=== PATIENT | female | born 1985 | race Caucasian/White ===

== ENCOUNTER 2016-07-03 13:18 | Inpatient (IN) | payer OTHER ==
[~2016-07-03] VITALS: Ht 170.2 cm; Wt 120.2 kg
[~2016-07-03 13:18] MED LIST: AUGMENTIN 875-1 EACH PO
--- NOTE | 2016-07-03 15:14 | History & Physical ---
General Information and HPI MD Statement: I have seen and personally examined JEANNE PEREZ and documented this H&P. 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 Allergies/Medications Allergies: Coded Allergies: No Known Allergies (12/10/15) Home Med list Amoxicillin/Potassium Clav (Augmentin 875-125 Tablet) 1 EACH TABLET 1 TAB PO BID DOG BITE Compliance With Home Meds: GOOD 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 History : 1 Para: 0 Last Menstrual Period: 10/07/2015 Estimated Delivery Date: 07/13/2016 Past engine 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 History: none Medical History Blood Transfusion Hx: No Neurological: NONE EENT: NONE Cardiovascular: NONE Respiratory: NONE Gastrointestinal: NONE Hepatic: NONE Renal: NONE Musculoskeletal: NONE Psychiatric: NONE Endocrine: obesity Blood Disorders: NONE Cancer(s): NONE 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 Home Who Do You Live With? spouse, self Primary Language: Syriac Smoking Status: Never Smoked ETOH Use: denies use Illicit Drug Use: denies illicit drug use Review of Systems Review of Systems: NEG FOR CARDIAC PULMONARY GI COMPLAINTS Exam & Diagnostic Data Last 24 Hrs of Vital Signs/I&O T 98.7 P 88 R 16 BP 118/74 PO2 99% RA Obstetric Exam Wgt Gained During : 48 Pelvimetry: SHOULD BE ADEQ FOR AVGE BABY Dilation (cm): 2 Effacement (%): 60 Station: -1 Membranes: SROM Fluid: clear Fundal Height (cm): 38 Multiple Gestation? No Contractions: IREG #1 - FHR Baseline: 134 Category: 1 Estimated Weight: 7# 4oz Presentation: VTX Patient for Induction? No Barker Score Barker Score Response Value Cervix Position: posterior 0 Cervix Consistency: medium 1 Cervix Effacement: 60-70% 2 Cervix Dilation: 1-2 cm 1 Cervix Station: -1 2 Total 6 Labs Blood Type & Rh: O+ Antibody Screen: N Hct/Hgb & Platelets #1: 13.4/40.6 PLTS 294,000 Hct/Hgb & Platelets #2: 11.7/35.7 PLTS 245,000 Rubella: I VDRL #1: N VDRL #2: N HbsAg: N HIV #1: N HIV #2 N 1 Hr P 3 Hr PG: N/A Group B Strep: N Initial Ultrasound: 12/09/2015 S=D=U/S ZOE 07/13/2016 Anatomy Ultrasound: 03/05/2016 @ 21 3/7 S=D=U/S MALE NL ANATOMY NEG ANNEUPLOIDY Ultrasound for EFW: 06/30/2016 AGA 71% 7#4oz NEG SHOULDER SCREEN Genetic Testing: NEG MAT SCREEN CF/ FRAG X/ SMA NEG 1ST TRIM SCREEN MAT T21 WNL - XY PARVO IMM Last 24 Hrs of Labs/Dyllan: Laboratory Tests 07/03/16 1330: Urine Color Pending, Urine Clarity Pending, Urine pH Pending, Ur Specific [place] Pending, Urine Protein Pending, Urine Ketones Pending, Urine Nitrite Pending, Urine Bilirubin Pending, Urine Urobilinogen Pending, Ur Leukocyte Esterase Pending, Ur Microscopic Pending, Urine Hemoglobin Pending, Urine Glucose Pending Assessment/Plan Assessment/Plan: @ 38 4/7 W/ SROM CLEAR FLUID. MAT BMI 42 NEG GR B STR/ NEG SHOULDER SCREEN ANTICIPATE ONSET OF LABOR - AUGMENT LABOR NEEDED LIMIT # OF VAG EXAMS As Ranked By This Provider Problem List: 1. 2. SROM (spontaneous rupture of membranes) 3. BMI 40.0-44.9, adult Core Measures/Miscellaneous Venous Thromboembolism VTE Risk Factors: Obesity, / VTE Contraindications: Active Bleeding VTE Prophylaxis Ordered Inpt: Early Ambulation (LOVENOX PP DUE TO BMI 42) VTE Diagnosis: No Beta Margarita Is Beta Margarita a Home Med? No If No, Why Not? N/A Antibiotics Is Patient on Antibiotics? No Attending MD Review Statement Attending Statement Attending MD Statement: examined this patient, discussed with family, discussed w/nursing Attending Assessment/Plan: Sukhjinder GUERIN MD
[2016-07-03 15:25] LABS: ABSOLUTE BASOPHIL COUNT 0 /CUMM (0.0-0.2); ABSOLUTE EOSINOPHIL COUNT 0.1 /CUMM (0.0-0.7); ABSOLUTE GRANULOCYTE CT 10.7 /CUMM (1.4-6.5); ABSOLUTE MONOCYTE COUNT 0.8 /CUMM (0.10-0.60); BASOPHIL % 0.2 % (0.0-2.0); EOSINOPHIL % 1.1 % (0-5); GRANULOCYTE % 78.7 % (42.2-75.2); HEMATOCRIT 35.1 % (37-47); MEAN CORPUSCULAR HGB 31.7 PG (27.0-31.0); MEAN CORPUSCULAR HGB CONC 34.2 G/DL (33.0-37.0); MEAN CORPUSCULAR VOLUME 92.6 FL (81.0-99.0); MEAN PLATELET VOLUME 8.6 FL (7.4-10.4); PLATELET COUNT 217 /CUMM (130-400); RBC DISTRIBUTION WIDTH 13.5 % (11.5-14.5); RED BLOOD CELL CT 3.79 /CUMM (4.20-5.40); WHITE BLOOD CELL COUNT 13.5 /CUMM (4.8-10.8)
--- NOTE | 2016-07-04 09:59 | PN- Obstetrical ---
Subjective Subjective: Slept off/ on over night, occas contractions, some leakage, no vag bleeding no fever/ chills Review of Systems: Neg for Cardiac Pulmonary GI complaints Objective Last 24 Hrs of Vital Signs/I&O Tmax 98,2 P 80's. R 16 BP 118/74 PO2 99 % RA Physical Exam General Appearance Alert, Oriented X3, Cooperative, No Acute Distress Skin No Significant Lesion Cardiovascular Regular Rate Lungs Normal Air Movement Abdomen Normal Bowel Sounds, Soft, No Tenderness, No Hepatospenomegaly, Uterus nontender mild contractions FHR 140's Neurological Normal Gait, Normal Speech Extremities No Tenderness/Swelling Reproductive (FEMALE) Normal female genitalia Obstetric Exam Dilation (cm): 3 Effacement (%): 80 Station: 0 Membranes: SROM Fluid: clear Multiple Gestation? No Contractions: irreg Infant #1 - FHR Baseline: 144 Category: 1 Estimated Weight: 7# 4oz Presentation: VTX Current Medications: Current Medications Sig/Abhishek Start time Last Medication Dose Route Stop Time Status Admin Hydroxyzine HCl 100 MG AT BEDTIME NEED.. 07/04 0000 AC 07/04 PO 0018 Hydroxyzine HCl 100 MG .STK-MED ONE 07/03 2253 DC PO 07/03 2254 Lactated Ringer's 1,000 ML Q8H 07/04 0830 AC 07/04 IV 0830 Oxytocin 30 UNITS PER PROTOCL 07/04 0930 AC Lactated Ringer's 500 ML IV Last 24 Hrs of Labs/Dyllan: Laboratory Tests 07/03/16 1530: Urine Color YEL, Urine Clarity HAZY H, Urine pH 6.0, Ur Specific [place] 1.015, Urine Protein TRACE H, Urine Ketones NEG, Urine Nitrite NEG, Urine Bilirubin NEG, Urine Urobilinogen 0.2, Ur Leukocyte Esterase NEG, Ur Microscopic SEDIMENT EXAMINED, Urine RBC 15-25 H, Ur Epithelial Cells MOD H, Urine Mucus MOD H, Urine Hemoglobin LARGE H, Urine Glucose NEG 07/03/16 1511: CBC w Diff NO MAN DIFF REQ, RBC 3.79 L, MCV 92.6, MCH 31.7 H, RDW 13.5, MPV 8.6, Gran % 78.7 H, Lymphocytes % 14.5 L, Monocytes % 5.5, Eosinophils % 1.1, Basophils % 0.2, Absolute Granulocytes 10.7 H, Absolute Lymphocytes 2.0, Absolute Monocytes 0.8 H, Absolute Eosinophils 0.1, Absolute Basophils 0, PUBS MCHC 34.2 07/03/16 1330: Urine Color Pending, Urine Clarity Pending, Urine pH Pending, Ur Specific [place] Pending, Urine Protein Pending, Urine Ketones Pending, Urine Nitrite Pending, Urine Bilirubin Pending, Urine Urobilinogen Pending, Ur Leukocyte Esterase Pending, Ur Microscopic Pending, Urine Hemoglobin Pending, Urine Glucose Pending Assessment/Plan Assessment/Plan HD #2 Change in cx from yesterday. Pt afebrile Cat 1 FHR tracing Plan Pitocin Augmentation careful monitoring anticipate Sukhjinder Holly MD
--- NOTE | 2016-07-04 17:56 | PN- OBGYN ---
Surgical Brief Attending Note Brief Attending Note: S: DOING WELL, COMFORTABLE W/ EPIDURAL - (PLACED @ 14:30) T 98.4 P 88 R 16 BP 118/62 PO 99% RA PITOCIN @ 14MU/HR CONTXNS Q 2- 3 MIN CX 5 CM 100% 0 STATION FHR 120'S CAT 1 STABLE - PROGRESS IN LABOR PLAN FOLLOW CLOSELY/ ANTICIPATE JULISSA GUERIN
--- NOTE | 2016-07-04 23:50 | Labor & Delivery Summary ---
Delivery Summary Vaginal Delivery: Vaginal: VERTEX SPONTANEOUS VAGINAL DELIVERY Episiotomy/Lacerations: Episiotomy/Lacerations: LACERATION Type: MIDLINE SECOND DEGREE Repair: 3-0 VICRYL Anesthesia: EPIDURAL/ LOCAL Placenta: Placenta: spontanteous, normal, 3 vessel, NUCHAL CORD X 1 Anesthesia: EPIDURAL Baby's Weight: BABY BOY 7#7oz 3385 gms Apgars - 1 Min: 7 Apgars - 5 Min: 8 Additional Comments: PT PROGRESSED WELL TO FULLY DILATED AND BEGAN PUSHING @ 21:40. OF A LV MALE OVER A SECOND DEGREE LACERATION @ 22:21. INITIALLY A VIGOROUS BABY WITH GOOD TONE. WEIGHT 7#7oz 3385 gms APGARS 7/8/9. WAS ON MOTHER'S CHEST COVERED, SKIN TO SKIN CONTACT, AND WAS NOTED TO BE MAKING "CROWING" SOUNDS WITH RESPIRATORY EXPIRATION. BABY WAS THEN TRANSFERRED TO WARMER. NO OXYGEN NEEDED- POSTURAL DRAINAGE AND CHEST PT. BABY THEN TAKEN TO THE NURSERY:O2 SAT 99-100% RA. PEDI IN TO CHECK THE BABY. FINAL DX WAS LIKELY MILD LOWER INFANT TEMP AND RESPITORY SECRETIONS- SINCE BABY QUICKLY IMPROVED WITHOUT INTERVENTION PROLONGED ROM (33:51) - BUT MOTHER AFEBRILE IN LABOR DESPITE EPIDURAL, AND NORMAL FHR BASELINE IN LABOR-NO SIGNS OF CHORIOAMNIONITIS. MAT INITIAL BMI 35.1 (DELIVERY BMI 42) NOT NEED LOVENOX PP RH + IMMUNE GOVIND
[2016-07-05 03:07] VITALS: BP 116/62
--- NOTE | 2016-07-05 08:46 | PN- OBGYN ---
Surgical Brief Attending Note Brief Attending Note: PPD#1 pt is resting in bed, no complaints, tolerate diet, void without difficulties, ambualting well PE: VSS General: NAD CV RRR Lungs CTA B/L Abdomen: soft, nontender, uterus firm,. fundus below umbilicus. lochia mild Ext: DCT(-), edema (+) A/P: 31yo, s/p , PPD #1 1. encourage ambulation, encourage . 2. RT PP care
[2016-07-05 10:05] LABS: ABSOLUTE BASOPHIL COUNT 0 /CUMM (0.0-0.2); ABSOLUTE EOSINOPHIL COUNT 0 /CUMM (0.0-0.7); ABSOLUTE GRANULOCYTE CT 12.5 /CUMM (1.4-6.5); ABSOLUTE LYMPH COUNT 1.8 /CUMM (1.2-3.4); ABSOLUTE MONOCYTE COUNT 0.8 /CUMM (0.10-0.60); BASOPHIL % 0.1 % (0.0-2.0); EOSINOPHIL % 0.2 % (0-5); GRANULOCYTE % 82.3 % (42.2-75.2); HEMATOCRIT 34.4 % (37-47); MEAN CORPUSCULAR HGB 31.1 PG (27.0-31.0); MEAN CORPUSCULAR HGB CONC 33.8 G/DL (33.0-37.0); MEAN CORPUSCULAR VOLUME 92.3 FL (81.0-99.0); MEAN PLATELET VOLUME 8.8 FL (7.4-10.4); PLATELET COUNT 193 /CUMM (130-400); RBC DISTRIBUTION WIDTH 13.5 % (11.5-14.5); RED BLOOD CELL CT 3.73 /CUMM (4.20-5.40); WHITE BLOOD CELL COUNT 15.2 /CUMM (4.8-10.8)
[2016-07-06] MEDS ORDERED: IBUPROFEN800 M1 PO (10:27)
--- NOTE | 2016-07-06 10:58 | PN- OBGYN ---
Surgical Brief Attending Note Brief Attending Note: C/O SOME CONSTIPATION ISSUES. HAS NOT HAD BM SINCE SHE WAS ADMITTED. OTHERWISE, AMBULATING, VOIDING, TOLERATING PAIN AND PO. APPROPRIATE LOCHIA. NURSING/ PUMPING. VSSAF FF@U-1 EXT: NO CALF TENDERNESS, NO EDEMA Laboratory Tests 07/05/16 0825: CBC w Diff NO MAN DIFF REQ, RBC 3.73 L, MCV 92.3, MCH 31.1 H, RDW 13.5, MPV 8.8, Gran % 82.3 H, Lymphocytes % 11.9 L, Monocytes % 5.5, Eosinophils % 0.2, Basophils % 0.1, Absolute Granulocytes 12.5 H, Absolute Lymphocytes 1.8, Absolute Monocytes 0.8 H, Absolute Eosinophils 0, Absolute Basophils 0, PUBS MCHC 33.8 07/03/16 1530: Urine Color YEL, Urine Clarity HAZY H, Urine pH 6.0, Ur Specific [place] 1.015, Urine Protein TRACE H, Urine Ketones NEG, Urine Nitrite NEG, Urine Bilirubin NEG, Urine Urobilinogen 0.2, Ur Leukocyte Esterase NEG, Ur Microscopic SEDIMENT EXAMINED, Urine RBC 15-25 H, Ur Epithelial Cells MOD H, Urine Mucus MOD H, Urine Hemoglobin LARGE H, Urine Glucose NEG 07/03/16 1511: CBC w Diff NO MAN DIFF REQ, RBC 3.79 L, MCV 92.6, MCH 31.7 H, RDW 13.5, MPV 8.6, Gran % 78.7 H, Lymphocytes % 14.5 L, Monocytes % 5.5, Eosinophils % 1.1, Basophils % 0.2, Absolute Granulocytes 10.7 H, Absolute Lymphocytes 2.0, Absolute Monocytes 0.8 H, Absolute Eosinophils 0.1, Absolute Basophils 0, PUBS MCHC 34.2 07/03/16 1330: Urine Color Pending, Urine Clarity Pending, Urine pH Pending, Ur Specific [place] Pending, Urine Protein Pending, Urine Ketones Pending, Urine Nitrite Pending, Urine Bilirubin Pending, Urine Urobilinogen Pending, Ur Leukocyte Esterase Pending, Ur Microscopic Pending, Urine Hemoglobin Pending, Urine Glucose Pending Microbiology 07/04 1500 URINE ROUT: Urine Culture - COMP A/P PPD 2. DOING WELL. ROUTINE PP CARE. DC TODAY. COUNSELED ON CONSTIPATION. ADVISED COLACE, SUPPOSITORIES, MIRALAX PRN. COUNSELED ON CIRC. CONSENT SIGNED. DC PRECAUTIONS ADVISED.
== END 2016-07-06 11:49 | DRG 775 ==
LOC: CBCO 13:18 → GNO 14:04
PROVIDERS: ADMIT Obstetrics & Gynecology
PROC: 0KQM0ZZ Repair Perineum Muscle, Open Approach (ICD-10-PCS; principal; 2016-07-04)
PROC: 10E0XZZ Delivery of Products of Conception, External Approach (ICD-10-PCS; principal; 2016-07-04)
DX: O70.1 Second degree perineal laceration during delivery (principal); Z37.0 Single live birth; O69.81X0 Labor and delivery complicated by cord around neck, without compression, not applicable or unspecified; Z3A.38 38 weeks gestation of pregnancy
CPT/HCPCS: GNOP; GNOS; 81001; 84112; 87086; G0463; J1885; J2210; J2405; J7120

== ENCOUNTER 2017-12-19 08:14 | Inpatient (IN) | payer OTHER ==
[~2017-12-19] VITALS: Ht 172.7 cm; Wt 117.9 kg
[~2017-12-19 08:14] MED LIST changes: +IBUPROFEN800 M1 PO
[2017-12-19 09:00] LABS: ABSOLUTE BASOPHIL COUNT 0 /CUMM (0.0-0.2); ABSOLUTE EOSINOPHIL COUNT 0.1 /CUMM (0.0-0.7); ABSOLUTE GRANULOCYTE CT 6.7 /CUMM (1.4-6.5); ABSOLUTE LYMPH COUNT 1.6 /CUMM (1.2-3.4); ABSOLUTE MONOCYTE COUNT 0.5 /CUMM (0.10-0.60); BASOPHIL % 0.4 % (0.0-2.0); EOSINOPHIL % 1.4 % (0-5); GRANULOCYTE % 74.7 % (42.2-75.2); MEAN CORPUSCULAR HGB 31.2 PG (27.0-31.0); MEAN CORPUSCULAR HGB CONC 34.8 G/DL (33.0-37.0); MEAN CORPUSCULAR VOLUME 89.7 FL (81.0-99.0); MEAN PLATELET VOLUME 8.8 FL (7.4-10.4); PLATELET COUNT 196 /CUMM (130-400); RED BLOOD CELL CT 3.35 /CUMM (4.20-5.40)
--- NOTE | 2017-12-19 09:13 | History & Physical ---
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 History : 1 Para: 0 Last Menstrual Period: 10/07/2015 Estimated Delivery Date: 07/13/2016 Past strap sewer History: none Medical History Neurological: NONE EENT: NONE Cardiovascular: NONE Respiratory: NONE Gastrointestinal: NONE Hepatic: NONE Renal: NONE Musculoskeletal: NONE Psychiatric: NONE Endocrine: obesity Blood Disorders: NONE Cancer(s): NONE 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 spouse, self Primary Language: Tamazight Smoking Status: Never Smoked Exam & Diagnostic Data Obstetric Exam Dilation (cm): 3 Effacement (%): 70 Station: -2 Membranes: intact Fundal Height (cm): 39 Multiple Gestation? No Contractions: none
[2017-12-19] MEDS ORDERED: PRENATAL ONE D1 EACH PO (09:37)
--- NOTE | 2017-12-19 16:13 | PN- OBGYN ---
Surgical Brief Attending Note Brief Attending Note: 3:30pm Pt still comfortable on Pitocin 11 mu. UCs regular, mild q3-5 Cervix 4cm/90%/VTX -2 AROM - clear (GBS neg) Epidural PRN 1700 Comfortable with epidural, no pressure FHR 145, category 1 UCs q3-4 on 12 mu Pitocin con't present mgmt. 1900 Still comfortable FHR 145, cat. 1, UCs q3 Fully dilated, VTX +3 station will proceed to stage 2
--- NOTE | 2017-12-19 20:30 | Labor & Delivery Summary ---
Delivery Summary Vaginal Delivery: Vaginal: vertex Episiotomy/Lacerations: Type: small abrasion at fourchette Repair: 3.0 Vicryl Anesthesia: epidural Placenta: Placenta: spontanteous, normal, 3 vessel Anesthesia: block Baby's Weight: [id number] Apgars - 1 Min: 8 Apgars - 5 Min: 9 Additional Comments: Multipara was delivered at 41w, spontaneoously, of a single viable female infant , 8,9, 33vs3km, from the MELANI position over an intact perineum. Clear AF, 3VC, placenta delivered spontaneously and intact. Perineum, labia, vaginal whelan, cervix, rectal sphincter and mucosa intact. Repair of abrasion at fourchette with 3.0 Vicryl X2 sutures. EM cavity clean of membranes and clots, fundus firm, lochias mild sponge and sharps counts correct.
[2017-12-20 09:00] LABS: ABSOLUTE BASOPHIL COUNT 0 /CUMM (0.0-0.2); ABSOLUTE EOSINOPHIL COUNT 0.1 /CUMM (0.0-0.7); ABSOLUTE GRANULOCYTE CT 7.9 /CUMM (1.4-6.5); ABSOLUTE LYMPH COUNT 2.1 /CUMM (1.2-3.4); ABSOLUTE MONOCYTE COUNT 0.8 /CUMM (0.10-0.60); BASOPHIL % 0.4 % (0.0-2.0); EOSINOPHIL % 1.2 % (0-5); HEMATOCRIT 29.1 % (37-47); MEAN CORPUSCULAR HGB 30.3 PG (27.0-31.0); MEAN CORPUSCULAR HGB CONC 33.7 G/DL (33.0-37.0); MEAN CORPUSCULAR VOLUME 89.8 FL (81.0-99.0); MEAN PLATELET VOLUME 9.3 FL (7.4-10.4); PLATELET COUNT 185 /CUMM (130-400); RBC DISTRIBUTION WIDTH 14.6 % (11.5-14.5); RED BLOOD CELL CT 3.24 /CUMM (4.20-5.40)
--- NOTE | 2017-12-20 16:49 | PN- Post Delivery/GYN ---
Subjective Subjective: pt is resting in bed, no complaints, feels well Review of Systems Constitutional: Reports: no symptoms. Cardiovascular: Reports: no symptoms. Respiratory: Reports: no symptoms. Gastrointestinal: Reports: no symptoms. Genitourinary: Reports: see HPI. All Other Systems: Reviewed and Negative Objective Last 24 Hrs of Vital Signs/I&O VSS Physical Exam: General: NAD CV RRR Lungs CTA B/L Abdomen: soft, nontender, uterus firm, fundus below umbilicus. lochia mild Ext: DCT (-) Current Medications: Current Medications Sig/Abhishek Start time Last Medication Dose Route Stop Time Status Admin Acetaminophen 650 MG Q4P PRN 12/20 714 AC PO Ibuprofen 800 MG Q6-PRN PRN 12/20 729 DC PO Ibuprofen 800 MG Q6P PRN 12/20 629 AC 12/20 PO 1555 Ibuprofen 800 MG .STK-MED ONE 12/19 1956 DC PO 12/19 1957 Lactated Ringer's 1,000 ML .Q1H1M 12/19 1830 DC IV 12/19 1930 Lactated Ringer's 1,000 ML Q8H 12/19 0845 DC 12/19 IV 1549 Oxycodone/ 1 TAB Q4-PRN PRN 12/20 729 AC Acetaminophen PO Oxytocin 20 UNITS Q5H 12/20 714 DC Lactated Ringer's 1,000 ML IV 12/20 1214 Oxytocin 20 UNITS .STK-MED ONE 12/19 1956 DC IV 12/19 1957 Oxytocin 30 UNITS PER PROTOCL 12/19 914 DC 12/19 Lactated Ringer's 500 ML IV 12/19 1715 0900 Senna 374 MG AT BEDTIME NEED.. 12/20 714 AC PO Last 24 Hrs of Labs/Dyllan: Laboratory Tests 12/20/17 0645: CBC w Diff NO MAN DIFF REQ, RBC 3.24 L, MCV 89.8, MCH 30.3, MCHC 33.7, RDW 14.6 H, MPV 9.3, Gran % 72.0, Lymphocytes % 19.5 L, Monocytes % 6.9, Eosinophils % 1.2, Basophils % 0.4, Absolute Granulocytes 7.9 H, Absolute Lymphocytes 2.1, Absolute Monocytes 0.8 H, Absolute Eosinophils 0.1, Absolute Basophils 0 Microbiology 12/19 1700 URINE ROUT: Urine Culture - RES Assessment/Plan Assessment/Plan 32yo, s/p , PPD#1 1. encourage ambulation and 2. RT PP care Problem List: 1. Attending MD Review Statement Attending Statement Attending MD Statement: examined this patient, discussed with family, discussed with nursing
--- NOTE | 2017-12-21 11:11 | PN- OBGYN ---
Surgical Brief Attending Note Brief Attending Note: pt feeling well. amb / void / edilberto po. no pain. not bf. afeb, v/ss nad abd soft nt ff myles min lochia ext nt tr b/l le ed a/p ppd 2 s/p doing well d/c home w/ f/u 6 wks routine pp care d/c instructions reviewed
== END 2017-12-21 11:30 | DRG 775 ==
LOC: GNO 08:14
PROVIDERS: Obstetrics & Gynecology
PROC: 10E0XZZ Delivery of Products of Conception, External Approach (ICD-10-PCS; principal; 2017-12-19)
DX: O48.0 Post-term pregnancy (principal); Z3A.41 41 weeks gestation of pregnancy; Z37.0 Single live birth
CPT/HCPCS: GNOP; GNOS; 81001; 87086; J7120